=== PATIENT | female | born 1990 | race Two or more races ===

== ENCOUNTER 2019-09-29 01:16 | Day surgery (SDC) | payer OTHER, SELFPAY ==
[2019-09-14 14:30] VITALS: BMI 23.8
[2019-09-29] VITALS (10 sets, daily range): BP systolic 124–149; BP diastolic 78–90; PULSE 74–98; RESP 11–20; TEMP 36.6–36.9; O2SAT 98–100; BMI 23.6
--- NOTE | 2019-09-29 06:29 | P.PNAN_ITS ---
Anes - Initial Pre Proc Eval Procedure: Operation Date: 09/29/19 07:30 Proposed Procedures p Bilateral Augmentation Mammoplasty - Titi Catalan MD Date/Time: 09/29/19 06:29 Surgeon: Titi Catalan MD Pre Op Diagnosis: Micromastia Patient Data Age: 29 Gender: F Height: 1.63 m Weight: 63 kg Allergies Allergy/AdvReac Type Severity Reaction Status Date / Time No Known Allergies Allergy Verified 09/14/19 14:27 Home Medications Medication Instructions Recorded Confirmed Type citalopram 20 mg tablet 20 mg PO DAILY 07/12/19 09/14/19 History norethindrone acetate 1.5 1 tablet PO DAILY 07/12/19 09/14/19 History mg-ethinyl estradiol 30 mcg tablet Adult Multivitamin Gummies 1 tab-cap PO DAILY 09/14/19 09/14/19 History albuterol sulfate [ProAir 2 inh INHALATION Q4-6H PRN 09/14/19 09/14/19 History RespiClick] mirtazapine 15 mg PO HS 09/14/19 09/14/19 History carisoprodol 350 mg tablet 350 mg PO TID PRN #21 tablet 09/15/19 09/15/19 Rx oxycodone-acetaminophen 5 mg-325 1 tablet PO Q6H PRN #15 tablet 09/15/19 09/15/19 Rx mg tablet Patient hx anesthesia problems: none Family hx anesthesia problems: none PMFSH Past Medical History Medical History (Updated 09/29/19 @ 06:30 by Eloy Crocker, ) Asthma rare inhaler use Depression with anxiety Tachycardia Pt unsure if it was SVT, stated she was very dehydrated with strep throat and went to ER with elevated HR. Went down on it's own. 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 for frequent vasovagal episodes but this has also resolved Surgical History Surgical History (Updated 07/12/19 @ 13:13 by Fatemeh Sargent) History of cholecystectomy Family History Family History (Updated 07/12/19 @ 13:14 by Fatemeh Sargent) Father COPD (chronic obstructive pulmonary disease) Hypertension Asthma Neuropathy Mother Depression Bipolar 1 disorder Hyperlipidemia Social History Social History (Updated 07/12/19 @ 13:15 by Fatemeh Sargent) Smoking status: Former smoker Alcohol intake: current Gender identity (if verbalized by the patient): Female Anes - Eval Final PreProcedure Day of Procedure 09/29/19 06:29 Patient weight: normal Heart: regular rate and rhythm Lungs: clear to auscultation and normal air movement Airway: Mallampati scale class 1 Neurological: alert and oriented Last oral intake: >/= 8 hours ASA classification: II Emergent: no Anesthetic plan: proceed Anesthesia type and monitoring: general LMA and standard monitoring Informed Consent: The patient's anesthetic plan and its attendant risks and benefits were discussed with the patient/family/POA. Questions were solicited and answers provided to the satisfaction of the patient/family/POA.
[2019-09-29] MEDS: LACTATED RINGERS 1,000 ML 30 ML IV CONT (06:50)
--- NOTE | 2019-09-29 07:00 | WPDHPUPDATE1 ---
History and Physical Update Update Date/Time: 09/29/19 07:00 History and Physical has been reviewed, including an updated exam of the patient. There are NO changes in the patient's condition. Risks, benefits, and alternatives have been discussed and questions answered. Patient agrees to proceed with procedure.
[2019-09-29] MEDS: ceFAZolin 2 GM/D5W 50 ML 2 GM/50 ML BAG IVPB (07:23)
[2019-09-29] MEDS: LIDO 1%/EPINEPHRINE 1:100,000 20 ML VIAL 60 ML INFILTRATE (07:54)
--- NOTE | 2019-09-29 08:48 | PM.PROC ---
Procedure Note - Detailed Date of procedure: 09/29/19 Pre-op diagnosis: Micromastia Post-op diagnosis: same Procedure performed: Bilateral breast augmentation Description of procedure: She is here today for bilateral breast augmentation. Previously and again today the risks, benefits, alternatives were discussed in extensive detail. I wanted her to be very realistic about the risks involved as well as expectations. She is aware of her pectus excavatum and the effect this has on her final outcome. We discussed aftercare and what to monitor for. Made sure answered all of her questions to her satisfaction today and consent was obtained. Marked in the preoperative holding area with their verification. The patient was taken to the operating room placed supine on the operating table. Anesthesia was provided by anesthesiology. A surgical time-out was taken. We cleansed the skin and 1% lidocaine and 0.25% Marcaine with epinephrine was used anesthetize as a field block. She was prepped and draped in a standard sterile fashion. Tegaderm nipple Christopher were placed. A 15 blade used to make an incision along the inframammary fold. Dissection was continued at 45 degree angle until the chest wall as identified. I incised the pectoralis major along its inferior border and completely released the inferior border leaving the medial border intact. I created a subpectoral pocket in the appropriate dimensions based on our preoperative planning for the implant. I then copiously irrigated with saline solution and verified a strict hemostasis. Next the use a triple antibiotic and Betadine containing solution to irrigate the pocket. I washed my gloves with the triple antibiotic and Betadine solution. We washed the implant immediately upon opening it with this solution and only opened it when we needed it. I used implant funnel and no-touch technique. The implant was introduced into the pocket using the funnel. Having verified positioning of the implant this was closed using 2-0 Vicryl followed by 3-0 Monocryl in a running subcuticular 4-0 Monocryl followed by tissue glue. Fluffs, Geovanny wrap, and surgical bra were placed. Patient was awoke and taken to PACU without difficulty. All instrument sponge counts were correct at the end of the case. Implants: Bilateral 345cc Soft Touch Implants Right: REF# [id number] Left: REF# [id number] SN [id number] Surgeon: Titi Catalan MD Estimated blood loss (mL): 10 Drains: No Packing: No Pathology: none sent Complications: No immediate complications Condition: stable Disposition: PACU
== END 2019-09-29 11:50 | disposition home or self-care (01) ==
PROVIDERS: PCP Family Medicine; Visit Provider Surgery Plastic and Reconstructive Surgery
PROC: (CPT 19325; principal; 2019-09-29 07:30)
DX: Z41.1 Encounter for cosmetic surgery (principal); N64.82 Hypoplasia of breast; J45.909 Unspecified asthma, uncomplicated; F41.8 Other specified anxiety disorders; Z87.891 Personal history of nicotine dependence
CPT/HCPCS: 19325; J0690; J1100; J1580; J2250; J2405; J2704; J3010; J7120